=== PATIENT | female | born 1990 | race Caucasian/White ===

== ENCOUNTER 2017-06-01 19:22 | Inpatient (IN) | payer OTHER ==
[~2017-06-01] VITALS: Ht 180.3 cm; Wt 131.9 kg
[~2017-06-01 19:22] MED LIST: MICRONOR0.35 MG PO; Motrin PO
[2017-06-01 19:59] VITALS: BP 145/79
[2017-06-01 20:14] VITALS: BP 138/74
[2017-06-01 20:29] VITALS: BP 132/77
[2017-06-01 20:44] VITALS: BP 139/81
[2017-06-01 21:13] LABS: BASOPHIL (%) 0.2 % (0-1); EOSINOPHIL (%) 0.2 % (0-5); HEMATOCRIT 36.9 % (36.0-46.0); HEMOGLOBIN 12.9 G/DL (11.9-15.5); IMMATURE GRANULOCYTE (%) 0.3 % (0.0-0.7); LYMPHOCYTE (%) 9.2 % (15-42); LYMPHOCYTE COUNT 1.1 K/uL (1.0-2.8); MCH 30.1 PG (29.0-34.0); MCV 86.2 FL (83-99); MONOCYTE (%) 6.4 % (3-12); MONOCYTE COUNT 0.8 K/uL (0-0.8); NEUTROPHIL (%) 83.7 % (45-76); NEUTROPHIL COUNT 10.2 K/uL (1.8-6.4); PLATELET COUNT 150 K/uL (156-360); RBC DIS.WIDTH-CV 13.8 % (11.8-14.6); RED BLOOD COUNT 4.28 M/uL (3.80-5.20); WHITE BLOOD COUNT 12.2 K/uL (4.1-10.2)
[2017-06-01] MEDS ORDERED: PRENATAL TABLE1 EAC3 PO (21:38)
[2017-06-01 21:53] VITALS: BP 126/73
[2017-06-01 22:55] VITALS: BP 132/72
[2017-06-02 06:41] LABS: BASOPHIL (%) 0.1 % (0-1); EOSINOPHIL (%) 0.6 % (0-5); EOSINOPHIL COUNT 0.1 K/uL (0-0.3); HEMATOCRIT 34.7 % (36.0-46.0); HEMOGLOBIN 11.8 G/DL (11.9-15.5); IMMATURE GRANULOCYTE (%) 0.3 % (0.0-0.7); LYMPHOCYTE (%) 14.9 % (15-42); LYMPHOCYTE COUNT 1.4 K/uL (1.0-2.8); MCH 28.9 PG (29.0-34.0); MONOCYTE (%) 8.7 % (3-12); MONOCYTE COUNT 0.8 K/uL (0-0.8); NEUTROPHIL (%) 75.4 % (45-76); NEUTROPHIL COUNT 7.2 K/uL (1.8-6.4); PLATELET COUNT 142 K/uL (156-360); RBC DIS.WIDTH-CV 13.6 % (11.8-14.6); RBC DIS.WIDTH-SD 41.5 % (39-53); RED BLOOD COUNT 4.08 M/uL (3.80-5.20); WHITE BLOOD COUNT 9.5 K/uL (4.1-10.2)
[2017-06-02 07:25] VITALS: BP 131/86
[2017-06-02 14:10] VITALS: BP 142/88
[2017-06-02 22:41] VITALS: BP 134/88
== END 2017-06-03 14:14 | disposition home or self-care (01) | DRG 775 ==
LOC: LDRP-OP → 2WEST 19:23 → LDRP-OP 07-02 10:04
PROVIDERS: Advanced Practice Midwife
DX: O99.214 Obesity complicating childbirth (principal); Z68.41 Body mass index [BMI] 40.0-44.9, adult; O99.12 Other diseases of the blood and blood-forming organs and certain disorders involving the immune mechanism complicating childbirth; O70.0 First degree perineal laceration during delivery; E66.01 Morbid (severe) obesity due to excess calories; O12.04 Gestational edema, complicating childbirth; Z3A.39 39 weeks gestation of pregnancy
CPT/HCPCS: 85025

== ENCOUNTER → 2017-08-10 | Outpatient (CLI) | payer OTHER ==
[~2017-08-10] MED LIST changes: +PRENATAL TABLE1 EAC3 PO
== END | disposition home or self-care (01) ==
LOC: CDC 11:19
DX: R00.8 Other abnormalities of heart beat (principal)
CPT/HCPCS: 93000